=== PATIENT | male | born 1960 | race Caucasian/White ===

== ENCOUNTER 2016-08-06 11:41 | Emergency (ER) | payer BC, OTHER ==
[~2016-08-06] VITALS: Ht 177.8 cm; Wt 77.1 kg
[2016-08-06] MEDS ORDERED: KETOROLAC TROMETH 60MG/2ML VIAL IM ONE (14:00)
[2016-08-06 14:20] VITALS: BP 139/79
== END 2016-08-06 15:16 | disposition home or self-care (01) ==
LOC: ER 11:48
DX: M51.27 Other intervertebral disc displacement, lumbosacral region (principal); N20.0 Calculus of kidney; M54.9 Dorsalgia, unspecified; G89.29 Other chronic pain
CPT/HCPCS: 72131; 93005; 96372; 99284; J1885

== ENCOUNTER 2016-08-17 12:24 | Emergency (ER) | payer BC ==
[~2016-08-17] VITALS: Ht 180.3 cm; Wt 81.6 kg
[2016-08-17 17:07] LABS: Urine Bilirubin Negative (Negative); Urine Blood 2+ /uL (Negative); Urine Color Yellow (Yellow); Urine Glucose Normal (Normal); Urine Ketone Negative (Negative); Urine Nitrite Negative (Negative); Urine RBC 25 /hpf (0 - 3); Urine Urobilinogen Normal (Negative)
[2016-08-17 17:08] VITALS: BP 101/52
[2016-08-17] MEDS ORDERED: ONDANSETRON HCL 4 MG/2 ML VIAL IV ONE (17:15)
[2016-08-17] MEDS ORDERED: MORPHINE SULFATE 4 MG/ML SYRG IV ONE (17:15)
== END 2016-08-17 19:44 | disposition home or self-care (01) ==
LOC: ER 12:36
DX: R31.9 Hematuria, unspecified (principal); F17.210 Nicotine dependence, cigarettes, uncomplicated
CPT/HCPCS: 51702; 81001; 96374; 96375; 99284; J2270; J2405